=== PATIENT | male | born 1975 | race Caucasian/White ===

== ENCOUNTER 2020-05-16 10:54 | Outpatient (REF) | payer OTHER, SELFPAY ==
[2020-05-16 14:27] LABS: Alanine Aminotransferase 87 U/L (0-40); Albumin Level 4.5 g/dL (3.5-5.0); Alkaline Phosphatase 66 U/L (39-117); Anion Gap 14 (12-20); Aspartate Amino Transferase 52 U/L (5-37); Bilirubin Total 0.7 mg/dL (0.0-1.0); Blood Urea Nitrogen 12 mg/dL (9-16); Calcium 9.2 mg/dL (8.4-10.2); Carbon Dioxide 27 mmol/L (22-29); Chloride 104 mmol/L (96-108); Estimated Glomerular Filt Rate > 60; Glucose Random 72 mg/dL (60-115); Potassium 3.6 mmol/l (3.3-5.1); Sodium 141 mmol/L (135-145)
[2020-05-18 19:02] LABS: LDL Cholesterol Direct 116 mg/dL (<100)
== END 2020-05-16 10:55 | disposition home or self-care (01) ==
LOC: HO.HMGCLDS 10:54
PROVIDERS: PCP Internal Medicine; Visit Provider Internal Medicine
DX: I10 Essential (primary) hypertension (principal); E66.01 Morbid (severe) obesity due to excess calories; Z68.43 Body mass index [BMI] 50.0-59.9, adult; F41.9 Anxiety disorder, unspecified; F33.1 Major depressive disorder, recurrent, moderate
CPT/HCPCS: 80053; 83721

== ENCOUNTER 2021-07-27 09:00 | Outpatient (REF) | payer OTHER, SELFPAY ==
[2021-07-27 10:54] LABS: MANUAL DIFF FLAG NO
[2021-07-27 10:57] LABS: Basophils Percent Auto 0.2 % (0-2); Eosinophils Absolute Auto 0.1 X10*3/uL (0.0-0.4); Eosinophils Percent Auto 1.1 % (0-4); Hematocrit 45.8 % (42.0-52.0); Hemoglobin 15.3 g/dl (14.0-18.0); Imm Gran Abs Auto 0.01 X10*3/uL (0.00-0.03); Imm Gran Pct Auto 0.2 % (0.0-0.4); Lymphocytes Absolute Auto 1.4 X10*3/uL (1.2-4.9); Lymphocytes Percent Auto 22.2 % (20-40); Mean Corpuscular HGB Conc 33.4 g/dl (31.0-36.0); Mean Corpuscular Hemoglobin 30.5 pg (27.0-33.0); Mean Corpuscular Volume 91.4 fL (80.0-98.0); Mean Platelet Volume 11.1 fL (9.4-12.4); Monocytes Absolute Auto 0.6 X10*3/uL (0.1-1.2); Monocytes Percent Auto 9.9 % (2-11); Neutrophils Absolute Auto 4.1 x10*3/uL (2.0-8.3); Neutrophils Percent Auto 66.4 % (45-73); Platelet Count 214 X10*3/uL (160-400); Red Blood Count 5.01 X10*6/uL (4.60-5.80); Red Cell Distribution Width 12.4 % (11.0-16.0); White Blood Count 6.2 X10*3/uL (4.8-10.8)
[2021-07-27 11:42] LABS: Alanine Aminotransferase 76 U/L (0-40); Albumin Level 4.1 g/dL (3.5-5.0); Alkaline Phosphatase 73 U/L (39-117); Anion Gap 11 (12-20); Aspartate Amino Transferase 36 U/L (5-37); Bilirubin Total 0.4 mg/dL (0.0-1.0); Blood Urea Nitrogen 14 mg/dL (9-16); Calcium 9.5 mg/dL (8.4-10.2); Carbon Dioxide 27 mmol/L (22-29); Chloride 106 mmol/L (96-108); Cholesterol 174 mg/dL; Estimated Glomerular Filt Rate > 60; Glucose Fasting 119 mg/dL (60-99); HDL Cholesterol 52 mg/dL; LDL Cholesterol Calculated 79 mg/dl; Potassium 3.6 mmol/L (3.3-5.1); Sodium 140 mmol/L (135-145); Total Protein 6.8 g/dL (6.5-8.0); Triglycerides 218 mg/dL
[2021-07-27 11:52] LABS: TSH reflex Free T4 1.73 uIU/mL (0.32-4.0)
== END 2021-07-27 09:01 | disposition home or self-care (01) ==
LOC: HO.HMGCLDS 09:00
PROVIDERS: PCP Internal Medicine; Visit Provider Internal Medicine
DX: F33.9 Major depressive disorder, recurrent, unspecified (principal); E66.01 Morbid (severe) obesity due to excess calories; I10 Essential (primary) hypertension; R46.89 Other symptoms and signs involving appearance and behavior
CPT/HCPCS: 36415; 80053; 80061; 84443; 85025

== ENCOUNTER 2023-01-06 13:23 | Outpatient (REF) | payer OTHER, SELFPAY ==
[2023-01-06 15:01] LABS: MANUAL DIFF FLAG NO
[2023-01-06 15:18] LABS: Basophils Percent Auto 0.3 % (0-2); Eosinophils Absolute Auto 0.1 X10*3/uL (0.0-0.4); Eosinophils Percent Auto 1.2 % (0-4); Hematocrit 46.6 % (42.0-52.0); Hemoglobin 15.8 g/dl (14.0-18.0); Imm Gran Abs Auto 0.02 X10*3/uL (0.00-0.03); Imm Gran Pct Auto 0.3 % (0.0-0.4); Lymphocytes Absolute Auto 1.8 X10*3/uL (1.2-4.9); Lymphocytes Percent Auto 24.6 % (20-40); Mean Corpuscular HGB Conc 33.9 g/dl (31.0-36.0); Mean Corpuscular Hemoglobin 30.9 pg (27.0-33.0); Mean Corpuscular Volume 91.2 fL (80.0-98.0); Mean Platelet Volume 10.9 fL (9.4-12.4); Monocytes Absolute Auto 0.6 X10*3/uL (0.1-1.2); Monocytes Percent Auto 8.2 % (2-11); Neutrophils Absolute Auto 4.7 x10*3/uL (2.0-8.3); Neutrophils Percent Auto 65.4 % (45-73); Platelet Count 235 X10*3/uL (160-400); Red Blood Count 5.11 X10*6/uL (4.60-5.80); Red Cell Distribution Width 12.1 % (11.0-16.0); White Blood Count 7.2 X10*3/uL (4.8-10.8)
[2023-01-06 15:30] LABS: Estimated Average Glucose 105 mg/dL; Hemoglobin A1C 149.4424 umol/L; Hemoglobin A1c % 5.3 %
[2023-01-06 16:13] LABS: Alanine Aminotransferase 72 U/L (0-40); Albumin Level 4.2 g/dL (3.5-5.0); Alkaline Phosphatase 72 U/L (39-117); Anion Gap 12 (12-20); Aspartate Amino Transferase 52 U/L (5-37); Bilirubin Total 0.7 mg/dL (0.0-1.0); Blood Urea Nitrogen 11 mg/dL (9-16); Calcium 9.6 mg/dL (8.4-10.2); Carbon Dioxide 26 mmol/L (22-29); Chloride 103 mmol/L (96-108); Estimated Glomerular Filt Rate > 60; Glucose Random 102 mg/dL (60-115); Potassium 3.1 mmol/L (3.3-5.1); Sodium 138 mmol/L (135-145); Total Protein 7.4 g/dL (6.5-8.0)
[2023-01-06 16:22] LABS: TSH reflex Free T4 1.45 uIU/mL (0.32-4.0)
[2023-01-08 08:09] LABS: LDL Cholesterol Direct 98 mg/dL (<100)
== END 2023-01-06 13:24 | disposition home or self-care (01) ==
LOC: HO.HMGCLDS 13:23
PROVIDERS: PCP Internal Medicine; Visit Provider Internal Medicine
DX: I10 Essential (primary) hypertension (principal); F33.9 Major depressive disorder, recurrent, unspecified; E66.01 Morbid (severe) obesity due to excess calories; R73.01 Impaired fasting glucose
CPT/HCPCS: 36415; 80053; 83036; 83721; 84443; 85025

== ENCOUNTER 2023-04-08 14:43 | Outpatient (AMB) | payer OTHER, SELFPAY ==
[2023-04-08 14:51] VITALS: BP 132/80; PULSE 73; O2SAT 94; BMI 50.9
--- NOTE | 2023-04-08 14:51 | MHC.PC.OV ---
Vital Signs 04/08/23 14:51 Height 6 ft 1 in Weight 386 lb 2 oz BMI 50.9 BP 132/80 Blood Pressure Location Lt brachial Position Sitting Pulse 73 Pulse Source Pulse Oximeter Pulse Oximetry (%) 94 Oxygen Delivery Method Room Air Intake Visit Reasons: 3 month follow up/PE Allergies No Known Allergies Allergy (Verified 04/08/23 14:52) Medication List - Last Reconciled 04/08/23 by Susan Bower MD amlodipine 10 mg PO DAILY 90 days buspirone 5 mg PO BID PRN 30 days fluticasone propionate 50 mcg/actuation (Flonase Allergy Relief) 1 spray intranasal BID 30 days hydrochlorothiazide 25 mg PO DAILY 90 days lisinopril 30 mg PO DAILY 90 days omeprazole 20 mg PO DAILY 90 days sertraline 200 mg (2 x 100 mg) PO DAILY 90 days Tobacco use date assessed: 04/08/23 Dental Screening Dental Screen Date: 04/08/23 Did you have a dental visit in the last 12 months?: Yes Did you have a dental problem in the last 6 months where you did not have access to dental care?: No Was dental information given to patient?: Patient has dentist HPI 3 month follow up/PE HPI Details Patient is 48-year-old gentleman came in today for physical examination Patient have a history of depression, he is taking sertraline 200 mg and buspirone 5 mg for anxiety as needed He is drinking excessive alcohol, he tells me that he has no excuse. He agrees to start counseling, I have sent a message to our behavior health coordinator for that. Last time patient had labs his potassium was 3.1 which could be because of alcohol, we will be repeating that again today. Blood pressure is stable patient is on amlodipine 10 mg, hydrochlorothiazide 25 mg and lisinopril 30 mg, no side effect GERD is stable with omeprazole 20 mg He is also on Flonase nasal spray for chronic nasal congestion. 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 [facility] Surgical History No pertinent past surgical history Family History Father HTN (hypertension) Mother HTN (hypertension) Brother No problems noted. Sister No problems noted. Sister No problems noted. Daughter No problems noted. Other Mental health disorder Substance use disorder Social History Housing: House Patient Tobacco Use Status: Current everyday Tobacco user Tobacco use type: Cigar (2 weekly) e-Cigarette/Vaping Use: Never Used Current occupational status: employed Cognitive needs: No Hearing needs: No Vision needs: Yes Questionnaire PHQ-9 Over the last 2 weeks, how often have you been bothered by any of the following problems? 1. Little interest or pleasure in doing things: several days 2. Feeling down, depressed, or hopeless: several days 3. Trouble falling or staying asleep, or sleeping too much: several days 4. Feeling tired or having little energy: several days 5. Poor appetite or overeating: several days 6. Feeling bad about yourself - or that you are a failure or have let yourself or your family down: several days 7. Trouble concentrating on things, such as reading the newspaper or watching television: more than half the days 8. Moving or speaking so slowly that other people could have noticed. Or the opposite - being so fidgety or restless that you have been moving around a lot more than usual: several days 9. Thoughts that you would be better off or of hurting yourself in some way: not at all Total score: 9 Depression Screening Interpretation: Negative 74333 - PHQ-9 Billing: Yes Source: Developed by Drs. Naveed Dasilva, Trice Mohan, Konstantin Bray and colleagues, with an educational michelle from [employer]. Thrive Questionnaire Date Thrive assessed: 04/08/23 I am a: Patient What is your living situation today?: I have a steady place to live Within the past 12 months, did the food you bought not last and you didn't have the money to get more?: Often true Within the past 12 months, did you worry whether your food would run out before you got money to buy more?: Never true Do you have trouble paying for medicines?: No Do you have trouble getting transportation to medical appointments?: No Do you have trouble paying your heating and electricity bill?: No Do you have trouble taking care of your child, family member or friend?: No Do you have trouble with day-to-day activities such as bathing, preparing meals, shopping, managing finances, etc.?: No Are you currently unemployed and looking for a job?: No Are you interested in more education?: No AUDIT C Alcohol Use Questionnaire (AUDIT-C) 1. How often do you have a drink containing alcohol?: 4 or more times a week 2. How many drinks containing alcohol do you have on a typical day when you are drinking?: 5 or 6 3. How often do you have six or more drinks on one occasion?: Weekly Total Score: 9 Score Reviewed/Action Taken: Yes PHILIPP-7 AMB Questionnaire PHILIPP-7 Date PHILIPP - 7 assessed: 04/08/23 Feeling nervous, anxious, or on edge: 1 = Several days Not being able to stop or control worryin = Several days Worrying too much about different things: 1 = Several days Trouble relaxin = Several days Being so restless that it is hard to sit still: 1 = Several days Becoming easily annoyed or irritable: 2 = More than half the days Feeling afraid as if something awful might happen: 1 = Several days Total PHILIPP-7 score (0-4 normal; 5-9 mild; 10-14 moderate; 15-21 severe): 8 Source: Developed by Drs. Naveed Dasilva, Trice Mohan, Konstantin Bray and colleagues, with an educational michelle from [employer]. PHILIPP-7 Assessment Billing PHILIPP-7 Assessment Tool: PHILIPP-7 Assessment 16800 Review of Systems Const Denies chills, Denies fever(s) and Denies headache(s) Eyes Denies blurry vision ENT Denies headache(s), Denies nasal discharge, Denies odynophagia and Denies sinus pain Card Denies chest pain at rest and Denies chest pain with activity Resp Denies cough and Denies hemoptysis GI Denies diarrhea, Denies odynophagia, Denies vomiting and Denies hematemesis Reports as per HPI Musc Denies abnormal gait Skin/Breast Reports as per HPI Neuro Denies Neuro-related abnormal movements, Denies Abnormal speech present, Denies abnormal gait, Denies headache(s) and Denies Sensory deficit (Neuro) Psych Denies paranoia Endo Reports as per HPI Scott/Lymph Reports as per HPI Aller/Immun Reports as per HPI Physical exam (Primary Care) Vital Signs: Last Vital Signs Pulse 73 04/08/23 14:51 BP 132/80 04/08/23 14:51 Pulse Ox 94 04/08/23 14:51 Oxygen Delivery Method Room Air 04/08/23 14:51 BMI result Body Mass Index 50.9 Tobacco/Smoking Status: Tobacco use Status Tobacco use date assessed 04/08/23 04/08/23 14:54 Patient Tobacco Use Status Current everyday Tobacco 04/08/23 14:54 Tobacco use type Cigar (2 weekly) 04/08/23 14:54 e-Cigarette/Vaping Use Never Used 04/08/23 14:54 PHQ-9: PHQ-9 Score PHQ-9: Total score 9 04/08/23 15:16 Depression Screening Interpretation: Negative Thrive Assessment: Date of Thrive Assessment Date Thrive assessed 04/08/23 04/08/23 15:16 Const General: cooperative, comfortable and no acute distress Orientation/consciousness: patient oriented x3 HENMT Head: Yes normocephalic and Yes atraumatic Eyes General: appearance normal, both eyes and all related structures Pupils: Equal, round and reactive pupils present EOM: EOMs intact bilaterally Neck Neck: Yes supple and No lymphadenopathy Thyroid: Thyroid normal Lymphatic: no lymphadenopathy noted Resp Effort & Inspection: normal respiratory effort and able to speak in complete sentences Auscultation: clear to auscultation bilaterally Cardio Heart sounds: S1 normal heart sound present and S2 normal heart sound present GI Palpation (GI): Soft to palpation and nontender Auscultation: normal bowel sounds General: Yes no CVA tenderness Back/Spine/Pelvis Back: no CVA tenderness Skin General skin exam: elasticity normal and turgor normal Neuro General: patient oriented x3 and gait normal Cranial nerves: Yes Equal, round and reactive pupils present Speech: No Abnormal speech present Sensory Exam: No Sensory deficit (Neuro) Coordination: tandem gait normal and Romberg test negative Extrem General: Yes normal exam except as noted and No edema Assessment and Plan Assessment & Plan (1) Encounter for general adult medical examination with abnormal findings: Code(s): Z00.01 - Encounter for general adult medical examination with abnormal findings (2) Major depression, recurrent: Code(s): F33.9 - Major depressive disorder, recurrent, unspecified Qualifiers: Active/Remission status: in partial remission Qualified Code(s): F33.41 - Major depressive disorder, recurrent, in partial remission (3) Morbid obesity due to excess calories: Code(s): E66.01 - Morbid (severe) obesity due to excess calories (4) Hypertension, essential: Code(s): I10 - Essential (primary) hypertension (5) Impaired fasting blood sugar: Code(s): R73.01 - Impaired fasting glucose (6) Sleep apnea in adult: Code(s): G47.30 - Sleep apnea, unspecified (7) Alcoholism: Code(s): F10.20 - Alcohol dependence, uncomplicated (8) Shortness of breath: Code(s): R06.02 - Shortness of breath Plan Patient is 48-year-old gentleman came in today for physical examination Patient have a history of depression, he is taking sertraline 200 mg and buspirone 5 mg for anxiety as needed He is drinking excessive alcohol, he tells me that he has no excuse. He agrees to start counseling, I have sent a message to our behavior health coordinator for that. Last time patient had labs his potassium was 3.1 which could be because of alcohol, we will be repeating that again today. Blood pressure is stable patient is on amlodipine 10 mg, hydrochlorothiazide 25 mg and lisinopril 30 mg, no side effect GERD is stable with omeprazole 20 mg He is also on Flonase nasal spray for chronic nasal congestion. His BMI is 50.9 patient is having difficulty losing weight He would like to stay try Semaglutide injection for weight loss Side effect of Semaglutide discussed with the patient including risk of thyroid cancer hyperglycemia. Is also complaining feeling short of breath especially climbing stairs, which can be due to his morbid obesity Patient also have a sleep apnea but unable to use a CPAP machine. I have ordered pulmonary function test for him. 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 Orders: Orders Comprehensive Met. Panel Today E66.01 - Morbid (severe) obesity due to excess calories, F33.9 - Major depressive disorder, recurrent, unspecified, G47.30 - Sleep apnea, unspecified, I10 - Essential (primary) hypertension, R73.01 - Impaired fasting glucose, Z00.01 - Encounter for general adult medical examination with abnormal findings PFT pulmonary function test Today R06.02 - Shortness of breath Medications: New semaglutide for 4 weeks 0.25 mg (0.368 mL) subcut QWEEK 2 mL 0RF 30 days E66.01 - Morbid (severe) obesity due to excess calories Coding Level of Care Code Est Pt Prev Care 40-64y(84308) Diagnoses Encounter for general adult medical examination with abnormal findings Z00.01 Recurrent major depressive disorder, in partial remission F33.41 Active/Remission status: in partial remission Morbid obesity due to excess calories E66.01 Hypertension, essential I10 Impaired fasting blood sugar R73.01 Sleep apnea in adult G47.30 Alcoholism F10.20 Shortness of breath R06.02 Additional Codes PHILIPP-7 Assessment Billing - PHILIPP-7 Assessment Tool: PHILIPP-7 Assessment [id number] ([id number])
== END 2023-04-08 15:44 | disposition home or self-care (01) ==
PROVIDERS: PCP Internal Medicine; Visit Provider Internal Medicine
DX: Z00.01 Encounter for general adult medical examination with abnormal findings (principal); F33.41 Major depressive disorder, recurrent, in partial remission; E66.01 Morbid (severe) obesity due to excess calories; Z68.43 Body mass index [BMI] 50.0-59.9, adult; I10 Essential (primary) hypertension; F10.20 Alcohol dependence, uncomplicated; R73.01 Impaired fasting glucose; G47.30 Sleep apnea, unspecified; R06.02 Shortness of breath
CPT/HCPCS: 99396

== ENCOUNTER 2023-04-08 15:14 | Outpatient (REF) | payer OTHER, SELFPAY ==
[2023-04-08 16:46] LABS: Alanine Aminotransferase 72 U/L (0-40); Albumin Level 4.2 g/dL (3.5-5.0); Alkaline Phosphatase 71 U/L (39-117); Anion Gap 13 (12-20); Aspartate Amino Transferase 51 U/L (5-37); Bilirubin Total 0.5 mg/dL (0.0-1.0); Blood Urea Nitrogen 11 mg/dL (9-16); Calcium 10.2 mg/dL (8.4-10.2); Carbon Dioxide 27 mmol/L (22-29); Chloride 103 mmol/L (96-108); Estimated Glomerular Filt Rate > 60; Glucose Random 95 mg/dL (60-115); Potassium 3.2 mmol/L (3.3-5.1); Sodium 140 mmol/L (135-145); Total Protein 7.4 g/dL (6.5-8.0)
== END 2023-04-08 15:15 | disposition home or self-care (01) ==
LOC: HO.HMGCLDS 15:14
PROVIDERS: PCP Internal Medicine; Visit Provider Internal Medicine
DX: Z00.01 Encounter for general adult medical examination with abnormal findings (principal); F33.9 Major depressive disorder, recurrent, unspecified; E66.01 Morbid (severe) obesity due to excess calories; I10 Essential (primary) hypertension; R73.01 Impaired fasting glucose; G47.30 Sleep apnea, unspecified
CPT/HCPCS: 36415; 80053

== ENCOUNTER 2023-09-16 13:54 | Outpatient (AMB) | payer OTHER, SELFPAY ==
--- NOTE | 2023-09-16 14:03 | MHC.PC.OV ---
Vital Signs 09/16/23 14:04 Height 6 ft 1 in Weight 400 lb BMI 52.8 BP 146/96 H Blood Pressure Location Lt brachial Position Sitting Pulse 79 Pulse Source Pulse Oximeter Pulse Oximetry (%) 97 Oxygen Delivery Method Room Air Intake Visit Reasons: refill on my prescriptions Allergies No Known Allergies Allergy (Verified 09/16/23 14:04) Medication List - Last Reconciled 09/16/23 by Susan Bower MD amlodipine 10 mg PO DAILY 90 days buspirone 5 mg PO BID PRN 30 days fluticasone propionate 50 mcg/actuation (Flonase Allergy Relief) 1 spray intranasal BID 30 days hydrochlorothiazide 25 mg PO DAILY 90 days lisinopril 30 mg PO DAILY 90 days omeprazole 20 mg PO DAILY 90 days semaglutide 0.25 mg (0.368 mL) subcut QWEEK 30 days sertraline 200 mg (2 x 100 mg) PO DAILY 90 days Tobacco use date assessed: 09/16/23 Dental Screening Dental Screen Date: 09/16/23 Did you have a dental visit in the last 12 months?: Yes Did you have a dental problem in the last 6 months where you did not have access to dental care?: No Was dental information given to patient?: Patient has dentist HPI refill on my prescriptions HPI Details Patient is 48-year-old gentleman came in today for follow-up appointment Patient have a history of depression, he is taking sertraline 200 mg and buspirone 5 mg for anxiety as needed He is still drinking alcohol however trying to cut down Blood pressure is stable patient is on amlodipine 10 mg, hydrochlorothiazide 25 mg and lisinopril 30 mg, no side effect GERD is stable with omeprazole 20 mg He is also on Flonase nasal spray for chronic nasal congestion. His BMI is above 50 patient is morbidly obese and having difficulty losing weight Semaglutide injections were sent last visit but patient says that he never got it, I have sent it again He tells me that he knows how to give himself injection Patient also have a sleep apnea but unable to use a CPAP machine. I have ordered pulmonary function test for him. Patient will start coming every 3 months for medication refills from now onwards Due for labs to be done today [facility] Surgical History No pertinent past surgical history Family History Father HTN (hypertension) Mother HTN (hypertension) Brother No problems noted. Sister No problems noted. Sister No problems noted. Daughter No problems noted. Other Mental health disorder Substance use disorder Social History Housing: House Patient Tobacco Use Status: Current everyday Tobacco user Tobacco use type: Cigar (2 weekly) e-Cigarette/Vaping Use: Never Used Current occupational status: employed Cognitive needs: No Hearing needs: No Vision needs: Yes Questionnaire PHQ-9 Over the last 2 weeks, how often have you been bothered by any of the following problems? 1. Little interest or pleasure in doing things: several days 2. Feeling down, depressed, or hopeless: more than half the days 3. Trouble falling or staying asleep, or sleeping too much: nearly every day 4. Feeling tired or having little energy: several days 5. Poor appetite or overeating: several days 6. Feeling bad about yourself - or that you are a failure or have let yourself or your family down: several days 7. Trouble concentrating on things, such as reading the newspaper or watching television: several days 8. Moving or speaking so slowly that other people could have noticed. Or the opposite - being so fidgety or restless that you have been moving around a lot more than usual: more than half the days 9. Thoughts that you would be better off or of hurting yourself in some way: not at all Total score: 12 Depression Screening Interpretation: Positive Depression Screening Follow-up: Existing condition and In treatment Depression Screening Done: Yes 97660 - PHQ-9 Billing: Yes Source: Developed by Drs. Naveed Dasilva, Trice Mohan, Konstantin Bray and colleagues, with an educational michelle from [employer]. Thrive Questionnaire Date Thrive assessed: 09/16/23 I am a: Patient What is your living situation today?: I have a steady place to live Within the past 12 months, did the food you bought not last and you didn't have the money to get more?: Never true Within the past 12 months, did you worry whether your food would run out before you got money to buy more?: Never true Do you have trouble paying for medicines?: No Do you have trouble getting transportation to medical appointments?: No Do you have trouble paying your heating and electricity bill?: No Do you have trouble taking care of your child, family member or friend?: No Do you have trouble with day-to-day activities such as bathing, preparing meals, shopping, managing finances, etc.?: No Are you currently unemployed and looking for a job?: No Are you interested in more education?: No Please select the resources that you would like help with: None Currently or been in a relationship where the following occur: no concerns reported THRIVE Score: 0 AUDIT C Alcohol Use Questionnaire (AUDIT-C) 1. How often do you have a drink containing alcohol?: 4 or more times a week 2. How many drinks containing alcohol do you have on a typical day when you are drinking?: 3 or 4 3. How often do you have six or more drinks on one occasion?: Never Total Score: 5 Score Reviewed/Action Taken: Yes PHILIPP-7 AMB Questionnaire PHILIPP-7 Date PHILIPP - 7 assessed: 09/16/23 Feeling nervous, anxious, or on edge: 2 = More than half the days Not being able to stop or control worryin = Several days Worrying too much about different things: 1 = Several days Trouble relaxin = More than half the days Being so restless that it is hard to sit still: 1 = Several days Becoming easily annoyed or irritable: 3 = Nearly every day Feeling afraid as if something awful might happen: 1 = Several days Total PHILIPP-7 score (0-4 normal; 5-9 mild; 10-14 moderate; 15-21 severe): 11 Source: Developed by Drs. Naveed Dasilva, Trice Mohan, Konstantin Bray and colleagues, with an educational michelle from [employer]. PHILIPP-7 Assessment Billing PHILIPP-7 Assessment Tool: PHILIPP-7 Assessment 13925 Review of Systems Const Denies chills and Denies fever(s) ENT Denies epistaxis and Denies nasal discharge Card Denies chest pain Resp Denies chest congestion, Denies cough and Denies hemoptysis GI Denies diarrhea and Denies nausea Skin/Breast Denies rash Neuro Reports no additional complaints Psych Reports no additional complaints Endo Reports no additional complaints Physical exam (Primary Care) Vital Signs: Last Vital Signs Pulse 79 09/16/23 14:04 BP 146/96 H 09/16/23 14:04 Pulse Ox 97 09/16/23 14:04 Oxygen Delivery Method Room Air 09/16/23 14:04 BMI result Body Mass Index 52.8 Tobacco/Smoking Status: Tobacco use Status Tobacco use date assessed 09/16/23 09/16/23 14:06 Patient Tobacco Use Status Current everyday Tobacco 09/16/23 14:06 Tobacco use type Cigar (2 weekly) 09/16/23 14:06 e-Cigarette/Vaping Use Never Used 09/16/23 14:06 Depression Screening Interpretation: Positive Depression Screening Follow-up: Existing condition and In treatment Thrive Assessment: Date of Thrive Assessment Date Thrive assessed 04/08/23 09/16/23 14:06 Currently or been in a relationship where the following occur: no concerns reported Const General: cooperative, comfortable and no acute distress Orientation/consciousness: patient oriented x3 HENMT Head: Yes normocephalic Eyes General: appearance normal, both eyes and all related structures Neck Neck: Yes supple Resp Effort & Inspection: normal respiratory effort, no cough and no stridor Cardio Rhythm: regular rhythm Heart sounds: S1 normal heart sound present and S2 normal heart sound present Skin General skin exam: turgor normal Neuro General: patient oriented x3, tone normal and moves all extremities Results AMB Hemoglobin A1c AMB Hemoglobin A1c 6.0 % Last Edit by Dhaval Stubbs CMA on 09/16/23 14:17 Results Reviewed Results Reviewed: Laboratory Last Values Hgb A1c (Clinic) 6.0 % (4.0-6.0) 09/16/23 14:17 Assessment and Plan Assessment & Plan (1) Hypertension, essential: Code(s): I10 - Essential (primary) hypertension (2) Major depression, recurrent: Code(s): F33.9 - Major depressive disorder, recurrent, unspecified Qualifiers: Active/Remission status: in partial remission Qualified Code(s): F33.41 - Major depressive disorder, recurrent, in partial remission (3) Morbid obesity due to excess calories: Code(s): E66.01 - Morbid (severe) obesity due to excess calories (4) Sleep apnea in adult: Code(s): G47.30 - Sleep apnea, unspecified (5) Impaired fasting blood sugar: Code(s): R73.01 - Impaired fasting glucose (6) Alcoholism: Code(s): F10.20 - Alcohol dependence, uncomplicated Plan Patient is 48-year-old gentleman came in today for follow-up appointment Patient have a history of depression, he is taking sertraline 200 mg and buspirone 5 mg for anxiety as needed He is still drinking alcohol however trying to cut down Blood pressure is stable patient is on amlodipine 10 mg, hydrochlorothiazide 25 mg and lisinopril 30 mg, no side effect GERD is stable with omeprazole 20 mg He is also on Flonase nasal spray for chronic nasal congestion. His BMI is above 50 patient is morbidly obese and having difficulty losing weight Semaglutide injections were sent last visit but patient says that he never got it, I have sent it again He tells me that he knows how to give himself injection Patient also have a sleep apnea but unable to use a CPAP machine. I have ordered pulmonary function test for him. Patient will start coming every 3 months for medication refills from now onwards Due for labs to be done today Orders: Orders Complete Blood Count Auto Diff Today E66.01 - Morbid (severe) obesity due to excess calories, F33.9 - Major depressive disorder, recurrent, unspecified, G47.30 - Sleep apnea, unspecified, I10 - Essential (primary) hypertension Comprehensive Met. Panel Today E66.01 - Morbid (severe) obesity due to excess calories, F33.9 - Major depressive disorder, recurrent, unspecified, G47.30 - Sleep apnea, unspecified, I10 - Essential (primary) hypertension LDL Cholesterol Direct Today E66.01 - Morbid (severe) obesity due to excess calories, F33.9 - Major depressive disorder, recurrent, unspecified, G47.30 - Sleep apnea, unspecified, I10 - Essential (primary) hypertension Microalbumin, Random (w Creat) Today E66.01 - Morbid (severe) obesity due to excess calories, F33.9 - Major depressive disorder, recurrent, unspecified, G47.30 - Sleep apnea, unspecified, I10 - Essential (primary) hypertension AMB Hemoglobin A1c Today Z13.9 - Encounter for screening, unspecified Medications: Changed From buspirone 5 mg PO BID 30 days PRN 30 tabs 2RF anxiety To buspirone 5 mg PO DAILY 90 days PRN 90 tabs 0RF anxiety Refilled amlodipine 10 mg PO DAILY 90 days 90 tabs 0RF hydrochlorothiazide 25 mg PO DAILY 90 days 90 tabs 0RF lisinopril 30 mg PO DAILY 90 days 90 tabs 0RF omeprazole 20 mg PO DAILY 90 days 90 caps 0RF K21.9 - Gastro-esophageal reflux disease without esophagitis sertraline 200 mg (2 x 100 mg) PO DAILY 90 days 180 tabs 0RF fluticasone propionate 50 mcg/actuation (Flonase Allergy Relief) administer into each nostril 1 spray intranasal BID 30 days 16 grams 2RF semaglutide for 4 weeks 0.25 mg (0.368 mL) subcut QWEEK 30 days 2 mL 2RF E66.01 - Morbid (severe) obesity due to excess calories Coding Level of Care Code Est Pt Level 4 (36919) Diagnoses Hypertension, essential I10 Recurrent major depressive disorder, in partial remission F33.41 Active/Remission status: in partial remission Morbid obesity due to excess calories E66.01 Sleep apnea in adult G47.30 Impaired fasting blood sugar R73.01 Alcoholism F10.20 Additional Codes PHILIPP-7 Assessment Billing - PHILIPP-7 Assessment Tool: PHILIPP-7 Assessment 30098 ([id number])
[2023-09-16 14:04] VITALS: BP 146/96; PULSE 79; O2SAT 97; BMI 52.8
== END 2023-09-16 15:47 | disposition home or self-care (01) ==
PROVIDERS: PCP Internal Medicine; Visit Provider Internal Medicine
DX: F33.41 Major depressive disorder, recurrent, in partial remission (principal); E66.01 Morbid (severe) obesity due to excess calories; F10.20 Alcohol dependence, uncomplicated; Z68.43 Body mass index [BMI] 50.0-59.9, adult; R73.01 Impaired fasting glucose; I10 Essential (primary) hypertension; G47.30 Sleep apnea, unspecified
CPT/HCPCS: 83036; 99214

== ENCOUNTER 2023-09-16 14:35 | Outpatient (REF) | payer OTHER, SELFPAY ==
[2023-09-16 16:19] LABS: MANUAL DIFF FLAG NO
[2023-09-16 16:24] LABS: Basophils Percent Auto 0.3 % (0-2); Eosinophils Absolute Auto 0.1 X10*3/uL (0.0-0.4); Eosinophils Percent Auto 1.4 % (0-4); Hematocrit 47.4 % (42.0-52.0); Imm Gran Abs Auto 0.03 X10*3/uL (0.00-0.03); Imm Gran Pct Auto 0.4 % (0.0-0.4); Lymphocytes Absolute Auto 1.7 X10*3/uL (1.2-4.9); Lymphocytes Percent Auto 23.7 % (20-40); Mean Corpuscular HGB Conc 33.8 g/dl (31.0-36.0); Mean Corpuscular Hemoglobin 31.1 pg (27.0-33.0); Mean Platelet Volume 10.4 fL (9.4-12.4); Monocytes Absolute Auto 0.7 X10*3/uL (0.1-1.2); Monocytes Percent Auto 9.1 % (2-11); Neutrophils Absolute Auto 4.8 x10*3/uL (2.0-8.3); Neutrophils Percent Auto 65.1 % (45-73); Platelet Count 228 X10*3/uL (160-400); Red Blood Count 5.15 X10*6/uL (4.60-5.80); White Blood Count 7.4 X10*3/uL (4.8-10.8)
[2023-09-16 18:01] LABS: Alanine Aminotransferase 81 U/L (0-40); Albumin Level 4.2 g/dL (3.5-5.0); Alkaline Phosphatase 70 U/L (39-117); Anion Gap 14 (12-20); Aspartate Amino Transferase 79 U/L (5-37); Bilirubin Total 0.4 mg/dL (0.0-1.0); Blood Urea Nitrogen 13 mg/dL (9-16); Calcium 9.7 mg/dL (8.4-10.2); Carbon Dioxide 26 mmol/L (22-29); Chloride 105 mmol/L (96-108); Estimated Glomerular Filt Rate > 60; Glucose Random 99 mg/dL (60-115); Potassium 3.8 mmol/L (3.3-5.1); Sodium 141 mmol/L (135-145); Total Protein 7.6 g/dL (6.5-8.0)
[2023-09-17 13:23] LABS: LDL Cholesterol Direct 106 mg/dL (<100)
== END 2023-09-16 14:36 | disposition home or self-care (01) ==
LOC: HO.HMGCLDS 14:35
PROVIDERS: PCP Internal Medicine; Visit Provider Internal Medicine
DX: I10 Essential (primary) hypertension (principal); F33.9 Major depressive disorder, recurrent, unspecified; E66.01 Morbid (severe) obesity due to excess calories; G47.30 Sleep apnea, unspecified
CPT/HCPCS: 36415; 80053; 83721; 85025

== ENCOUNTER 2024-05-20 10:38 | Outpatient (AMB) | payer MEDICAID, SELFPAY ==
[2024-05-20 10:50] VITALS: BP 134/78; PULSE 111; O2SAT 97; BMI 51.4
--- NOTE | 2024-05-20 10:50 | A.OFFPC_ITS ---
Vital Signs 05/20/24 10:50 Height 6 ft 1 in Weight 390 lb BMI 51.4 BP 134/78 Blood Pressure Location Rt brachial Position Sitting Pulse 111 H Pulse Source Pulse Oximeter Pulse Oximetry (%) 97 Oxygen Delivery Method Room Air Intake Visit Reasons: follow up medication Allergies No Known Allergies Allergy (Verified 05/20/24 10:52) Medication List - Last Reconciled 05/20/24 by Susan Bower MD amlodipine 10 mg PO DAILY 90 days buspirone 5 mg PO DAILY PRN 90 days fluticasone propionate 50 mcg/actuation (Flonase Allergy Relief) 1 spray intranasal BID 30 days hydrochlorothiazide 25 mg PO DAILY 90 days lisinopril 30 mg PO DAILY 90 days omeprazole 20 mg PO DAILY 90 days semaglutide 0.25 mg (0.368 mL) subcut QWEEK 30 days sertraline 200 mg (2 x 100 mg) PO DAILY 90 days Tobacco use date assessed: 05/20/24 Dental Screening Dental Screen Date: 05/20/24 Did you have a dental visit in the last 12 months?: Yes Did you have a dental problem in the last 6 months where you did not have access to dental care?: No Was dental information given to patient?: Patient has dentist HPI follow up medication HPI Details Patient is 49-year-old gentleman came in today for follow-up appointment Last time seen was August of this year, after that patient did not come in for follow-up appointment He tells me that there was some insurance issues We had missed appointments before as well and we have talked to patient number of times regarding regular follow-up If they are to continue filling medications , side effects need to be monitored Patient have a history of depression, he is taking sertraline 200 mg and buspirone 5 mg for anxiety as needed He is still drinking alcohol however trying to cut down Blood pressure is stable patient is on amlodipine 10 mg, hydrochlorothiazide 25 mg and lisinopril 30 mg, no side effect GERD is stable with omeprazole 20 mg He is also on Flonase nasal spray for chronic nasal congestion. His BMI is above 50 patient is morbidly obese and having difficulty losing weight I have sent semaglutide injections again, patient have a new insurance now He will get back to me if he is able to pick that up, patient knows how to administer injection to him Patient also have a sleep apnea but unable to use a CPAP machine. I have ordered pulmonary function test for him. Follow-up 3 months Due for labs to be done today [facility] Surgical History No pertinent past surgical history Family History Father HTN (hypertension) Mother HTN (hypertension) Brother No problems noted. Sister No problems noted. Sister No problems noted. Daughter No problems noted. Other Mental health disorder Substance use disorder Social History Housing: House Patient Tobacco Use Status: Current everyday Tobacco user Tobacco use type: Cigar (2 weekly) e-Cigarette/Vaping Use: Never Used Current occupational status: employed Cognitive needs: No Hearing needs: No Vision needs: Yes Questionnaire Thrive Questionnaire Date Thrive assessed: 05/20/24 I am a: Patient What is your living situation today?: I have a steady place to live Within the past 12 months, did the food you bought not last and you didn't have the money to get more?: Never true Within the past 12 months, did you worry whether your food would run out before you got money to buy more?: Never true Do you have trouble paying for medicines?: No Do you have trouble getting transportation to medical appointments?: No Do you have trouble paying your heating and electricity bill?: No Do you have trouble taking care of your child, family member or friend?: No Do you have trouble with day-to-day activities such as bathing, preparing meals, shopping, managing finances, etc.?: No Are you currently unemployed and looking for a job?: Yes Are you interested in more education?: No Please select the resources that you would like help with: None Currently or been in a relationship where the following occur: I choose not to answer THRIVE Score: 0 AUDIT C Alcohol Use Questionnaire (AUDIT-C) 1. How often do you have a drink containing alcohol?: 4 or more times a week 2. How many drinks containing alcohol do you have on a typical day when you are drinking?: 5 or 6 3. How often do you have six or more drinks on one occasion?: Daily or almost daily Total Score: 10 Score Reviewed/Action Taken: Yes PHILIPP-7 AMB Questionnaire PHILIPP-7 Date PHILIPP - 7 assessed: 05/20/24 Feeling nervous, anxious, or on edge: 1 = Several days Not being able to stop or control worryin = More than half the days Worrying too much about different things: 1 = Several days Trouble relaxin = More than half the days Being so restless that it is hard to sit still: 1 = Several days Becoming easily annoyed or irritable: 2 = More than half the days Feeling afraid as if something awful might happen: 2 = More than half the days Total PHILIPP-7 score (0-4 normal; 5-9 mild; 10-14 moderate; 15-21 severe): 11 Source: Developed by Drs. Naveed Dasilva, Trice Mohan, Konstantin Bray and colleagues, with an educational michelle from [employer]. PHILIPP-7 Assessment Billing PHILIPP-7 Assessment Tool: PHILIPP-7 Assessment 86041 Review of Systems Const Denies chills and Denies fever(s) ENT Denies epistaxis and Denies nasal discharge Card Denies chest pain Resp Denies chest congestion, Denies cough and Denies hemoptysis GI Denies diarrhea and Denies nausea Skin/Breast Denies rash Neuro Reports no additional complaints Psych Reports no additional complaints Endo Reports no additional complaints Physical exam (Primary Care) Vital Signs: Last Vital Signs Pulse 111 H 05/20/24 10:50 BP 134/78 05/20/24 10:50 Pulse Ox 97 05/20/24 10:50 Oxygen Delivery Method Room Air 05/20/24 10:50 BMI result Body Mass Index 51.4 Tobacco/Smoking Status: Tobacco use Status Tobacco use date assessed 05/20/24 05/20/24 10:52 Patient Tobacco Use Status Current everyday Tobacco 05/20/24 10:52 Tobacco use type Cigar (2 weekly) 05/20/24 10:52 e-Cigarette/Vaping Use Never Used 05/20/24 10:52 Thrive Assessment: Date of Thrive Assessment Date Thrive assessed 05/20/24 05/20/24 10:52 Currently or been in a relationship where the following occur: I choose not to answer Const General: cooperative, comfortable and no acute distress Orientation/consciousness: patient oriented x3 HENMT Head: Yes normocephalic Eyes General: appearance normal, both eyes and all related structures Neck Neck: Yes supple Resp Effort & Inspection: normal respiratory effort, no cough and no stridor Cardio Rhythm: regular rhythm Heart sounds: S1 normal heart sound present and S2 normal heart sound present Skin General skin exam: turgor normal Neuro General: patient oriented x3, tone normal and moves all extremities Coding Level of Care Code Tele Est Pt Level 4 (61768) Complex EM visit Add On G2211 Diagnoses Hypertension, essential I10 Recurrent major depressive disorder, in partial remission F33.41 Active/Remission status: in partial remission Morbid obesity due to excess calories E66.01 Chronic nasal congestion R09.81 Gastroesophageal reflux disease without esophagitis K21.9 Esophagitis presence: without esophagitis Sleep apnea in adult G47.30 Impaired fasting blood sugar R73.01 Alcoholism F10.20 Additional Codes PHILIPP-7 Assessment Billing - PHILIPP-7 Assessment Tool: PHILIPP-7 Assessment [id number] ([id number]) Assessment & Plan Assessment & Plan (1) Hypertension, essential: Code(s): I10 - Essential (primary) hypertension Category: Medical (2) Major depression, recurrent: Code(s): F33.9 - Major depressive disorder, recurrent, unspecified Category: Medical Qualifiers: Active/Remission status: in partial remission Qualified Code(s): F33.41 - Major depressive disorder, recurrent, in partial remission (3) Morbid obesity due to excess calories: Code(s): E66.01 - Morbid (severe) obesity due to excess calories Category: Medical (4) Chronic nasal congestion: Code(s): R09.81 - Nasal congestion Category: Medical (5) Acid reflux: Code(s): K21.9 - Gastro-esophageal reflux disease without esophagitis Category: Medical Qualifiers: Esophagitis presence: without esophagitis Qualified Code(s): K21.9 - Gastro-esophageal reflux disease without esophagitis (6) Sleep apnea in adult: Code(s): G47.30 - Sleep apnea, unspecified Category: Medical (7) Impaired fasting blood sugar: Code(s): R73.01 - Impaired fasting glucose Category: Medical (8) Alcoholism: Comment: CONSEQUENCES OF DRINKING PROBLEMS There are a number of serious consequences of drinking alcohol excessively -------Excessive alcohol consumption is a leading preventable cause of in the [place]. --------Drinking alcohol increases the risk of traffic accidents, suicide, drowning, and other serious injuries. -------Alcohol use continues to be the leading cause of injuries treated in trauma centers and emergency departments . --------Alcohol-related liver disease may lead to end-stage liver disease (cirr hosis) and . --------Alcohol increases the risk of certain cancers of the mouth, esophagus, throat, liver, and breast. Code(s): F10.20 - Alcohol dependence, uncomplicated Category: Medical Plan Patient is 49-year-old gentleman came in today for follow-up appointment Last time seen was August of this year, after that patient did not come in for follow-up appointment He tells me that there was some insurance issues We had missed appointments before as well and we have talked to patient number of times regarding regular follow-up If they are to continue filling medications , side effects need to be monitored Patient have a history of depression, he is taking sertraline 200 mg and buspirone 5 mg for anxiety as needed He is still drinking alcohol however trying to cut down Once again patient was advised to stop as soon as possible If he needs any assistance he is to get back to me Blood pressure is stable patient is on amlodipine 10 mg, hydrochlorothiazide 25 mg and lisinopril 30 mg, no side effect GERD is stable with omeprazole 20 mg He is also on Flonase nasal spray for chronic nasal congestion. His BMI is above 50 patient is morbidly obese and having difficulty losing weight I have sent semaglutide injections again, patient have a new insurance now He will get back to me if he is able to pick that up, patient knows how to administer injection to him Patient also have a sleep apnea but unable to use a CPAP machine. I have ordered pulmonary function test for him. Follow-up 3 months Due for labs to be done today Orders: Orders Comprehensive Met. Panel Today E66.01 - Morbid (severe) obesity due to excess calories, F10.20 - Alcohol dependence, uncomplicated, F33.41 - Major depressive disorder, recurrent, in partial remission, G47.30 - Sleep apnea, unspecified, I10 - Essential (primary) hypertension, K21.9 - Gastro-esophageal reflux disease without esophagitis, R09.81 - Nasal congestion, R73.01 - Impaired fasting glucose LDL Cholesterol Direct Today E66.01 - Morbid (severe) obesity due to excess calories, F10.20 - Alcohol dependence, uncomplicated, F33.41 - Major depressive disorder, recurrent, in partial remission, G47.30 - Sleep apnea, unspecified, I10 - Essential (primary) hypertension, K21.9 - Gastro-esophageal reflux disease without esophagitis, R09.81 - Nasal congestion, R73.01 - Impaired fasting glucose Microalbumin, Random (w Creat) Today E66.01 - Morbid (severe) obesity due to excess calories, F10.20 - Alcohol dependence, uncomplicated, F33.41 - Major depressive disorder, recurrent, in partial remission, G47.30 - Sleep apnea, unspecified, I10 - Essential (primary) hypertension, K21.9 - Gastro-esophageal reflux disease without esophagitis, R09.81 - Nasal congestion, R73.01 - Impaired fasting glucose Hemoglobin A1c Today E66.01 - Morbid (severe) obesity due to excess calories, F10.20 - Alcohol dependence, uncomplicated, F33.41 - Major depressive disorder, recurrent, in partial remission, G47.30 - Sleep apnea, unspecified, I10 - Essential (primary) hypertension, K21.9 - Gastro-esophageal reflux disease wi thout esophagitis, R09.81 - Nasal congestion, R73.01 - Impaired fasting glucose Complete Blood Count Auto Diff Today E66.01 - Morbid (severe) obesity due to excess calories, F10.20 - Alcohol dependence, uncomplicated, F33.41 - Major depressive disorder, recurrent, in partial remission, G47.30 - Sleep apnea, unspecified, I10 - Essential (primary) hypertension, K21.9 - Gastro-esophageal reflux disease without esophagitis, R09.81 - Nasal congestion, R73.01 - Impaired fasting glucose TSH reflex Free T4 Today E66.01 - Morbid (severe) obesity due to excess calories, F10.20 - Alcohol dependence, uncomplicated, F33.41 - Major depressive disorder, recurrent, in partial remission, G47.30 - Sleep apnea, unspecified, I10 - Essential (primary) hypertension, K21.9 - Gastro-esophageal reflux disease without esophagitis, R09.81 - Nasal congestion, R73.01 - Impaired fasting glucose Medications: Refilled amlodipine 10 mg PO DAILY 90 days 90 tabs 0RF buspirone 5 mg PO DAILY 90 days PRN 90 tabs 0RF anxiety fluticasone propionate 50 mcg/actuation (Flonase Allergy Relief) administer into each nostril 1 spray intranasal BID 30 days 16 grams 2RF sertraline 200 mg (2 x 100 mg) PO DAILY 90 days 180 tabs 0RF semaglutide for 4 weeks 0.25 mg (0.368 mL) subcut QWEEK 30 days 1.84 mL 2RF E66.01 - Morbid (severe) obesity due to excess calories hydrochlorothiazide 25 mg PO DAILY 90 days 90 tabs 0RF lisinopril 30 mg PO DAILY 90 days 90 tabs 0RF omeprazole 20 mg PO DAILY 90 days 90 caps 0RF K21.9 - Gastro-esophageal reflux disease without esophagitis Discontinued semaglutide for 4 weeks Discontinued Reason: Doctor's Order 0.25 mg (0.368 mL) subcut QWEEK 30 days 2 mL 2RF E66.01 - Morbid (severe) obesity due to excess calories
== END 2024-05-20 11:04 | disposition home or self-care (01) ==
LOC: HO.HMCC 10:39
PROVIDERS: PCP Internal Medicine; Visit Provider Internal Medicine
DX: I10 Essential (primary) hypertension (principal); F33.41 Major depressive disorder, recurrent, in partial remission; E66.01 Morbid (severe) obesity due to excess calories; Z68.43 Body mass index [BMI] 50.0-59.9, adult; F10.20 Alcohol dependence, uncomplicated; R09.81 Nasal congestion; K21.9 Gastro-esophageal reflux disease without esophagitis; G47.30 Sleep apnea, unspecified; R73.01 Impaired fasting glucose

== ENCOUNTER 2024-05-20 10:38 | Outpatient (REF) | payer MEDICAID, SELFPAY ==
[2024-05-20 13:27] LABS: MANUAL DIFF FLAG NO
[2024-05-20 13:46] LABS: Basophils Percent Auto 0.1 % (0-2); Eosinophils Absolute Auto 0.1 X10*3/uL (0.0-0.4); Eosinophils Percent Auto 1.5 % (0-4); Hematocrit 47.4 % (42.0-52.0); Hemoglobin 16.3 g/dl (14.0-18.0); Imm Gran Abs Auto 0.04 X10*3/uL (0.00-0.03); Imm Gran Pct Auto 0.5 % (0.0-0.4); Lymphocytes Absolute Auto 1.4 X10*3/uL (1.2-4.9); Mean Corpuscular HGB Conc 34.4 g/dl (31.0-36.0); Mean Corpuscular Volume 92.9 fL (80.0-98.0); Monocytes Absolute Auto 0.5 X10*3/uL (0.1-1.2); Monocytes Percent Auto 6.4 % (2-11); Neutrophils Absolute Auto 5.3 x10*3/uL (2.0-8.3); Neutrophils Percent Auto 72.5 % (45-73); Platelet Count 256 X10*3/uL (160-400); Red Cell Distribution Width 11.9 % (11.0-16.0); White Blood Count 7.3 X10*3/uL (4.8-10.8)
[2024-05-20 14:02] LABS: Estimated Average Glucose 126 mg/dL; Hemoglobin A1C 176.7306 umol/L; Total Hemoglobin (HGBA1C) 4212.0901 umol/L
[2024-05-20 14:18] LABS: Alanine Aminotransferase 107 U/L (0-40); Albumin Level 4.1 g/dL (3.5-5.0); Alkaline Phosphatase 84 U/L (39-117); Anion Gap 16 (12-20); Aspartate Amino Transferase 88 U/L (5-37); Bilirubin Total 0.5 mg/dL (0.0-1.0); Blood Urea Nitrogen 9 mg/dL (9-16); Calcium 9.9 mg/dL (8.4-10.2); Carbon Dioxide 22 mmol/L (22-29); Chloride 104 mmol/L (96-108); Estimated Glomerular Filt Rate > 60; Glucose Random 213 mg/dL (60-115); Potassium 3.3 mmol/L (3.3-5.1); Sodium 139 mmol/L (135-145); Total Protein 7.6 g/dL (6.5-8.0)
[2024-05-20 14:26] LABS: TSH reflex Free T4 2.18 uIU/mL (0.32-4.0)
[2024-05-22 07:03] LABS: LDL Cholesterol Direct 122 mg/dL (<100)
== END 2024-05-20 10:39 | disposition home or self-care (01) ==
LOC: HO.HMGCLDS 10:38
PROVIDERS: PCP Internal Medicine; Visit Provider Internal Medicine
DX: F33.41 Major depressive disorder, recurrent, in partial remission (principal); E66.01 Morbid (severe) obesity due to excess calories; I10 Essential (primary) hypertension; R09.81 Nasal congestion; K21.9 Gastro-esophageal reflux disease without esophagitis; G47.30 Sleep apnea, unspecified; R73.01 Impaired fasting glucose; F10.20 Alcohol dependence, uncomplicated; Z79.899 Other long term (current) drug therapy
CPT/HCPCS: 36415; 80053; 83036; 83721; 84443; 85025; 96127; 99212